=== PATIENT | female | born 1970 | race Caucasian/White ===

== ENCOUNTER 2018-12-26 21:59 | Emergency (ER) | payer BC, OTHER ==
[~2018-12-26] VITALS: Ht 160 cm; Wt 119.5 kg
[2018-12-26] MEDS ORDERED: NS IV 1000 ML 1,000 ML IV ONE (22:11)
--- NOTE | 2018-12-26 22:11 | ED GI ---
General Chief Complaint: Abdominal/GI Problems Stated Complaint: SHAKY, DIARRHEA, VOMITING Source of Information: Patient History of Present Illness Date Seen by Provider: Dec 26, 2018 Time Seen by Provider: 22:08 Initial Comments 48-year-old female presents with nausea vomiting diarrhea for about 2 days. She reports that about 30 minutes ago or so she got very "shaky" patient denies any cough, shortness of breath, chest pain. Patient reports she is hasn't felt very well for a couple days. Patient reports that when she takes her temperature that is running low. Allergies and Home Medications Allergies Coded Allergies: No Known Drug Allergies (Unverified , 12/26/18) Patient Home Medication List Home Medication List Reviewed: Yes Review of Systems Review of Systems Constitutional: chills EENTM: No Symptoms Reported Respiratory: Denies Cough, Denies Shortness of Air Cardiovascular: Denies Chest Pain, Denies Lightheadedness Gastrointestinal: Denies Abdominal Pain; Diarrhea, Nausea, Vomiting Genitourinary: No Symptoms Reported Musculoskeletal: no symptoms reported Skin: no symptoms reported Past Lcowyqe-Bjctno-Zjpzaq Hx Past Med/Social Hx: Reviewed Nursing Past Med/Soc Hx Patient Social History Recent Foreign Travel: No Contact w/Someone Who Travel: No Physical Exam Vital Signs Vital Signs - First Documented 12/26/18 12/26/18 22:10 23:15 Temp 36.8 Pulse 107 Resp 20 B/P (MAP) 193/70 (111) Pulse Ox 100 O2 Delivery Room Air Capillary Refill : Height/Weight/BMI Height: '" Weight: lbs. oz. kg; BMI Method: General Appearance: other (diffuse tremors) HEENT: PERRL/EOMI Neck: supple Respiratory: lungs clear, normal breath sounds Cardiovascular: normal peripheral pulses, regular rate, rhythm Gastrointestinal: non tender, soft Neurologic/Psychiatric: alert, normal mood/affect, oriented x 3 Skin: normal color, warm/dry Progress/Results/Core Measures Results/Orders Lab Results Laboratory Tests Test 12/26/18 22:10 Range/Units White Blood Count 12.8 H 4.3-11.0 10^3/uL Red Blood Count 4.72 4.35-5.85 10^6/uL Hemoglobin 13.4 11.5-16.0 G/DL Hematocrit 41 35-52 % Mean Corpuscular Volume 86 80-99 FL Mean Corpuscular Hemoglobin 28 25-34 PG Mean Corpuscular Hemoglobin Concent 33 32-36 G/DL Red Cell Distribution Width 13.2 10.0-14.5 % Platelet Count 379 130-400 10^3/uL Mean Platelet Volume 10.2 7.4-10.4 FL My Orders Orders - NIA GOMEZ L DO Cbc No Diff (12/26/18 22:05) Comprehensive Metabolic Panel (12/26/18 22:05) Lipase (12/26/18 22:05) Ua Culture If Indicated (12/26/18 22:05) Influenza A And B Antigens (12/26/18 22:05) Accucheck Stat ONCE (12/26/18 22:05) Acute Abd Series (12/26/18 22:05) Ed Iv/Invasive Line Start (12/26/18 22:11) Ns Iv 1000 Ml (Sodium Chloride 0.9%) (12/26/18 22:11) Ondansetron Injection (Zofran Injectio (12/26/18 22:15) Ed Iv/Invasive Line Start (12/26/18 22:11) Thyroid Analyzer (12/26/18 22:13) Medications Given in ED Current Medications Medications Dose Ordered Sig/Shaila Route Start Time Stop Time Status Last Admin Dose Admin Ondansetron HCl 4 mg ONCE ONCE IVP 12/26/18 22:15 12/26/18 22:16 DC 12/26/18 22:25 4 MG Sodium Chloride 1,000 ml @ 0 mls/hr Q0M ONCE IV 12/26/18 22:11 12/26/18 22:13 DC 12/26/18 22:25 0 MLS/HR Vital Signs/I&O 12/26/18 12/26/18 22:10 23:15 Temp 36.8 37.1 Pulse 107 98 Resp 20 20 B/P (MAP) 193/70 (111) 137/67 Pulse Ox 100 O2 Delivery Room Air Room Air 12/27/18 00:00 Intake Total 1000 ml Balance 1000 ml Progress Progress Note : Progress Note Patient felt significantly better following IV fluids and Zofran. Her tremors stopped. She had no episodes of vomiting or diarrhea while here in the ER. Patient discharged home in stable condition. Departure Impression Primary Impression: Viral gastroenteritis Disposition: 01 HOME, SELF-CARE Condition: Stable Departure-Patient Inst. Referrals: KENJI ALCALA APRN (PCP) Primary Care Physician Add. Discharge Instructions: Patient sent home with prescription for Zofran to take as directed on package All discharge instructions reviewed with patient and/or family. Voiced understanding. NIA GOMEZ DO Dec 26, 2018 22:10
[2018-12-26] MEDS ORDERED: ONDANSETRON 4 MG/2 ML (SDV) Z0FRAN IVP ONE (22:15)
[2018-12-26 22:25] LABS: HEMOGLOBIN 13.4 G/DL (11.5-16.0); MEAN PLATELET VOLUME 10.2 FL (7.4-10.4); RED CELL DISTRIBUTION WIDTH 13.2 % (10.0-14.5); WHITE BLOOD COUNT 12.8 10^3/uL (4.3-11.0)
[2018-12-26 23:15] VITALS: BP 137/67
[2018-12-27 02:05] LABS: BILIRUBIN,URINE NEGATIVE (NEGATIVE); CLARITY,URINE CLEAR; COLOR,URINE YELLOW; GLUCOSE, URINE (UA) 3+ (NEGATIVE); KETONES,URINE NEGATIVE (NEGATIVE); LEUKOCYTE ESTERASE ,URINE TRACE (NEGATIVE); NITRITE,URINE NEGATIVE (NEGATIVE); PROTEIN,URINE TRACE (NEGATIVE); RBC,URINE 0-2 /HPF
[2018-12-27 02:06] LABS: BACTERIA,URINE FEW /HPF
[2018-12-27 02:07] LABS: ALANINE AMINOTRANSFERASE 32 U/L (0-55); ALBUMIN 4.4 GM/DL (3.2-4.5); ALKALINE PHOSPHATASE 99 U/L (40-136); BILIRUBIN,TOTAL 0.3 MG/DL (0.1-1.0); BUN/CREATININE RATIO 28; CALCIUM 9.5 MG/DL (8.5-10.1); CARBON DIOXIDE 25 MMOL/L (21-32); CHLORIDE 98 MMOL/L (98-107); GFR ESTIMATED > 60; GLUCOSE 259 MG/DL (70-105); LIPASE 40 U/L (8-78); POTASSIUM 3.9 MMOL/L (3.6-5.0); SODIUM 139 MMOL/L (135-145); TOTAL PROTEIN 7.5 GM/DL (6.4-8.2)
--- NOTE | 2018-12-27 07:02 | Diagnostic Imaging Report ---
INDICATION: Dizziness with vomiting and diarrhea since Monday. COMPARISON: None TECHNIQUE: 6 views of the chest and abdomen were obtained. FINDINGS: Lung volumes are normal. No focal consolidation or mass. No large pleural effusion or pneumothorax. The heart size is unremarkable. The included osseous structures demonstrate no acute abnormalities. The bowel gas pattern is nondistended. No large collection of free intraperitoneal air is seen. Scattered small amounts of gas and fecal material are present in the colon. No abnormal extraosseous calcifications are present. The osseous structures are age-appropriate. IMPRESSION: 1. No evidence of bowel obstruction or large collection of free intraperitoneal air. 2. No acute pleuroparenchymal process. Dictated by: Dictated on workstation # [id number]
[2018-12-27 15:24] LABS: TSH (THYROID ANALYZER) 2.77 UIU/ML (0.35-4.94)
== END 2018-12-26 23:15 | disposition home or self-care (01) ==
LOC: ER FS 22:00
DX: A08.4 Viral intestinal infection, unspecified (principal)
CPT/HCPCS: 36415; 74022; 80053; 81000; 83690; 84443; 85027; 87804; 96361; 96374

== ENCOUNTER → 2019-07-25 | Outpatient (CLI) | payer BC, OTHER | LOC: WOUNDCARE 12:54 | PROVIDERS: ATTEND Surgery | DX: L98.492 Non-pressure chronic ulcer of skin of other sites with fat layer exposed (principal); E11.622 Type 2 diabetes mellitus with other skin ulcer; L02.31 Cutaneous abscess of buttock; T65.222A Toxic effect of tobacco cigarettes, intentional self-harm, initial encounter; F17.218 Nicotine dependence, cigarettes, with other nicotine-induced disorders; E66.01 Morbid (severe) obesity due to excess calories | CPT/HCPCS: 11042 ==

== ENCOUNTER → 2019-07-25 | Outpatient (CLI) | payer SELFPAY ==
[2019-07-25 14:37] LABS: BASOPHILS # (AUTO) 0.1 10^3/uL (0.0-0.1); BASOPHILS % (AUTO) 1 % (0-10); EOSINOPHILS % (AUTO) 0 % (0-10); HEMATOCRIT 39 % (35-52); LYMPHOCYTES # (AUTO) 3.9 X 10^3 (1.0-4.0); LYMPHOCYTES % (AUTO) 31 % (12-44); MEAN CORPUSCULAR HEMOGLOBIN 28 PG (25-34); MEAN CORPUSCULAR HGB CONC 33 G/DL (32-36); MEAN CORPUSCULAR VOLUME 84 FL (80-99); MEAN PLATELET VOLUME 9.6 FL (7.4-10.4); MONOCYTES % (AUTO) 8 % (0-12); NEUTROPHILS # (AUTO) 7.5 X 10^3 (1.8-7.8); NEUTROPHILS % (AUTO) 60 % (42-75); PLATELET COUNT 500 10^3/uL (130-400); RED CELL DISTRIBUTION WIDTH 13.7 % (10.0-14.5); WHITE BLOOD COUNT 12.5 10^3/uL (4.3-11.0)
== END ==
LOC: LAB 14:12
PROVIDERS: ATTEND Surgery
DX: E11.622 Type 2 diabetes mellitus with other skin ulcer (principal); L98.492 Non-pressure chronic ulcer of skin of other sites with fat layer exposed; L02.31 Cutaneous abscess of buttock; E66.01 Morbid (severe) obesity due to excess calories; T65.222A Toxic effect of tobacco cigarettes, intentional self-harm, initial encounter; F17.218 Nicotine dependence, cigarettes, with other nicotine-induced disorders
CPT/HCPCS: 36415; 85025

== ENCOUNTER → 2019-07-31 | Outpatient (CLI) | payer OTHER | LOC: WOUNDCARE 08:27 | PROVIDERS: ATTEND Surgery | DX: E11.622 Type 2 diabetes mellitus with other skin ulcer (principal); L98.492 Non-pressure chronic ulcer of skin of other sites with fat layer exposed; L02.31 Cutaneous abscess of buttock; T65.222A Toxic effect of tobacco cigarettes, intentional self-harm, initial encounter; F41.9 Anxiety disorder, unspecified; F17.218 Nicotine dependence, cigarettes, with other nicotine-induced disorders; E66.01 Morbid (severe) obesity due to excess calories; Z68.41 Body mass index [BMI] 40.0-44.9, adult | CPT/HCPCS: 11042 ==

== ENCOUNTER → 2019-08-07 | Outpatient (CLI) | payer OTHER | LOC: WOUNDCARE 10:17 | PROVIDERS: ATTEND Surgery | DX: E11.622 Type 2 diabetes mellitus with other skin ulcer (principal); E11.52 Type 2 diabetes mellitus with diabetic peripheral angiopathy with gangrene; I96 Gangrene, not elsewhere classified; L98.492 Non-pressure chronic ulcer of skin of other sites with fat layer exposed; L02.31 Cutaneous abscess of buttock; T65.222A Toxic effect of tobacco cigarettes, intentional self-harm, initial encounter; F17.218 Nicotine dependence, cigarettes, with other nicotine-induced disorders; E66.01 Morbid (severe) obesity due to excess calories; Z68.41 Body mass index [BMI] 40.0-44.9, adult | CPT/HCPCS: 11042 ==

== ENCOUNTER → 2019-08-14 | Outpatient (CLI) | payer OTHER | LOC: WOUNDCARE 08:46 | PROVIDERS: ATTEND Surgery | DX: E11.622 Type 2 diabetes mellitus with other skin ulcer (principal); L98.492 Non-pressure chronic ulcer of skin of other sites with fat layer exposed; L02.31 Cutaneous abscess of buttock; T65.222A Toxic effect of tobacco cigarettes, intentional self-harm, initial encounter; F17.218 Nicotine dependence, cigarettes, with other nicotine-induced disorders; E66.01 Morbid (severe) obesity due to excess calories; Z68.41 Body mass index [BMI] 40.0-44.9, adult | CPT/HCPCS: 11042 ==

== ENCOUNTER → 2019-08-21 | Outpatient (CLI) | payer OTHER | LOC: WOUNDCARE 08:13 | PROVIDERS: ATTEND Surgery | DX: E11.622 Type 2 diabetes mellitus with other skin ulcer (principal); L98.492 Non-pressure chronic ulcer of skin of other sites with fat layer exposed; L02.31 Cutaneous abscess of buttock; T65.222A Toxic effect of tobacco cigarettes, intentional self-harm, initial encounter; F41.9 Anxiety disorder, unspecified; F17.218 Nicotine dependence, cigarettes, with other nicotine-induced disorders; E66.01 Morbid (severe) obesity due to excess calories; Z68.41 Body mass index [BMI] 40.0-44.9, adult | CPT/HCPCS: 99213 ==

== ENCOUNTER → 2019-08-28 | Outpatient (CLI) | payer OTHER | LOC: WOUNDCARE 08:10 | PROVIDERS: ATTEND Surgery | DX: E11.622 Type 2 diabetes mellitus with other skin ulcer (principal); L98.492 Non-pressure chronic ulcer of skin of other sites with fat layer exposed; L02.31 Cutaneous abscess of buttock; T65.222A Toxic effect of tobacco cigarettes, intentional self-harm, initial encounter; F17.218 Nicotine dependence, cigarettes, with other nicotine-induced disorders; E66.01 Morbid (severe) obesity due to excess calories; Z68.41 Body mass index [BMI] 40.0-44.9, adult | CPT/HCPCS: 99212 ==